=== PATIENT | female | born 1955 | race African-American/Black ===

== ENCOUNTER 2016-10-01 08:37 | Inpatient (IN) | payer MEDICAID ==
[~2016-10-01] VITALS: Ht 170.2 cm; Wt 117.9 kg
[2016-10-01] MEDS ORDERED: NORVASC5 MG ORAL (08:41)
[2016-10-01] MEDS ORDERED: ALBUTEROL SULF8.5 GM INH (08:41)
[2016-10-01] MEDS ORDERED: LISINOPRIL5 MG ORAL (08:41)
[2016-10-01] MEDS ORDERED: Ipratropium 0.02% Inh Soln 2.5ml UD HHN ONE (08:45)
[2016-10-01] MEDS ORDERED: Solu-MEDROL 125mg Inj IVP ONE (08:45)
[2016-10-01] MEDS ORDERED: Albuterol ud Inhalation HHN ONE ×2 (08:45→10:00)
[2016-10-01 08:48] VITALS: BP 142/56
--- NOTE | 2016-10-01 08:51 | Emergency Room Report ---
History of Present Illness General Chief Complaint: Dyspnea/Respdistress Source: Patient, EMS Present Illness HPI Patient presents with increased dyspnea. The patient has COPD. She's been using her nebulizer at home. She denies any fevers. She has a thick phlegm but without color. She has a slight chest pain. She also has pain in her knees and her ankles. Denies any nausea vomiting or diarrhea. She's recently hospitalized at [facility]. Paramedics found that her initial oxygen saturation is 90%. With Albuterol it went up to 97%. The patient is somewhat improved after there breathing treatment. This is not her worst attack. No dysuria, rashes, depression. She still smokes. Allergies: Coded Allergies: SULFA (SULFONAMIDE ANTIBIOTICS) (Verified Allergy, Unknown, 10/01/16) Patient History Past Medical History: see triage record, COPD, HIV Social History: Reports: smoking Social History Narrative at home Last Menstrual Period: na Now: No Reviewed Nursing Documentation: PMH: Agreed, PSxH: Agreed Nursing Documentation-PMH Hx Hypertension: Yes Hx COPD: Yes Review of Systems All Other Systems: negative except mentioned in HPI Physical Exam Vital Signs Date Time Temp Pulse Resp B/P Pulse Ox O2 Delivery O2 Flow Rate FiO2 10/01/16 08:30 98.1 101 24 134/80 100 Room Air 10/01/16 08:43 97 Sp02 EP Interpretation: reviewed, normal General Appearance: well appearing, no apparent distress, GCS 15 Head: normocephalic Eyes: bilateral eye PERRL, bilateral eye normal inspection ENT: moist mucus membranes Neck: supple Respiratory: wheezing, expiration, inspiration, other - minimal CWT Cardiovascular #1: regular rate, rhythm Cardiovascular #2: 2+ radial (R) Gastrointestinal: normal inspection, normal bowel sounds, non tender, no mass, non-distended, overweight Genitourinary: no CVA tenderness Musculoskeletal: back normal, gait/station normal, normal range of motion, no calf tenderness Neurologic: alert, oriented x3, grossly normal Psychiatric: mood/affect normal Skin: normal inspection, warm/dry Medical Decision Making Diagnostic Impression: Primary Impression: Asthma with acute exacerbation Qualified Codes: J45.41 - Moderate persistent asthma with (acute) exacerbation Additional Impression: Hypoxia ER Course Patient with dyspnea and hypoxia. Ddx: COPD, pneumonia, bronchitis, PE, pneumo , AMI amongst others. Emergent evaluation with CXR, EKG and labs. Treatment with solumedrol, albuterol. Not sound infected so will hold on antibiotics. Tobacco abuse. Improved with treatment, but needing another round of albuterol. C/O more pain and requesting analgesia, but then falls asleep easily. CXR and labs unremarkable. Laboratory Tests Test 10/01/16 08:55 White Blood Count 8.8 K/UL (4.8-10.8) Red Blood Count 5.37 M/UL (4.20-5.40) Hemoglobin 14.6 G/DL (12.0-16.0) Hematocrit 48.3 % (37.0-47.0) H Mean Corpuscular Volume 90 FL (80-99) Mean Corpuscular Hemoglobin 27.3 PG (27.0-31.0) Mean Corpuscular Hemoglobin Concent 30.3 G/DL (32.0-36.0) L Red Cell Distribution Width 15.5 % (11.6-14.8) H Platelet Count 188 K/UL (150-450) Mean Platelet Volume 7.6 FL (6.5-10.1) Neutrophils (%) (Auto) 69.4 % (45.0-75.0) Lymphocytes (%) (Auto) 18.7 % (20.0-45.0) L Monocytes (%) (Auto) 10.1 % (1.0-10.0) H Eosinophils (%) (Auto) 0.3 % (0.0-3.0) Basophils (%) (Auto) 1.6 % (0.0-2.0) Prothrombin Time 10.9 SEC (9.30-11.50) Prothrombin Time INR 1.1 (0.9-1.1) PTT 28 SEC (23-33) Sodium Level 139 mEQ/L (135-145) Potassium Level 4.4 mEQ/L (3.4-4.9) Chloride Level 95 mEQ/L (98-107) L Carbon Dioxide Level 30 mEQ/L (20-30) Anion Gap 14 (5-15) Blood Urea Nitrogen 15 mg/dL (7-23) Creatinine 0.9 mg/dL (0.5-0.9) Estimate Glomerular Filtration Rate > 60 mL/min (>60) Glucose Level 120 mg/dL (74-106) H Lactic Acid Level 1.50 mmol/L (0.66-2.22) Calcium Level 9.3 mg/dL (8.6-10.2) Total Bilirubin 0.8 mg/dL (0.0-1.2) Aspartate Amino Transferase (AST) 54 U/L (5-40) H Alanine Aminotransferase (ALT) 16 U/L (3-33) Alkaline Phosphatase 65 U/L (35-104) Total Creatine Kinase 510 U/L (26-140) H Troponin I < 0.30 ng/mL (<=0.30) Pro-B-Type Natriuretic Peptide 1395 pg/mL (0-125) H Total Protein 8.2 g/dL (6.6-8.7) Albumin 4.1 g/dL (3.5-5.2) Globulin 4.1 g/dL Albumin/Globulin Ratio 1.0 (1.0-2.7) EKG Diagnostic Results Rate: normal Rhythm: NSR ST Segments: no acute changes - LAE, LASH Rhythm Strip Diag. Results EP Interpretation: yes Rhythm: NSR, no PVC's, no ectopy Chest X-Ray Diagnostic Results EP Interpretation: Yes Findings: no consolidation, no effusion, no pneumothorax, no acute cardiopulmonary disease, other - large hilae Number of Views: 1 Last Vital Signs Date Time Temp Pulse Resp B/P Pulse Ox O2 Delivery O2 Flow Rate FiO2 10/01/16 08:48 97 22 142/56 97 Room Air 10/01/16 08:43 97 10/01/16 08:30 98.1 Status: improved Disposition: ADMITTED INPATIENT Condition: Serious Gerson Benitez M.D. October 01, 2016 08:51
[2016-10-01 09:16] LABS: BASOPHILS % (AUTO) 1.6 % (0.0-2.0); EOSINOPHILS % (AUTO) 0.3 % (0.0-3.0); LYMPHOCYTES % (AUTO) 18.7 % (20.0-45.0); MEAN CORPUSCULAR HEMOGLOBIN 27.3 PG (27.0-31.0); MEAN CORPUSCULAR HGB CONC 30.3 G/DL (32.0-36.0); MEAN CORPUSCULAR VOLUME 90 FL (80-99); MEAN PLATELET VOLUME 7.6 FL (6.5-10.1); MONOCYTES % (AUTO) 10.1 % (1.0-10.0); NEUTROPHILS % (AUTO) 69.4 % (45.0-75.0); PLATELET COUNT 188 K/UL (150-450); RED BLOOD COUNT 5.37 M/UL (4.20-5.40); RED CELL DISTRIBUTION WIDTH 15.5 % (11.6-14.8); WHITE BLOOD COUNT 8.8 K/UL (4.8-10.8)
[2016-10-01 09:23] LABS: INR 1.1 (0.9-1.1); PROTHROMBIN TIME 10.9 SEC (9.30-11.50)
[2016-10-01 09:28] LABS: TROPONIN I < 0.30 ng/mL (<=0.30)
[2016-10-01 09:29] LABS: ALANINE AMINOTRANSFERASE 16 U/L (3-33); ANION GAP 14 (5-15); ASPARTATE AMINO TRANSFERASE 54 U/L (5-40); CALCIUM 9.3 mg/dL (8.6-10.2); CARBON DIOXIDE 30 mEQ/L (20-30); CHLORIDE 95 mEQ/L (98-107); CREATININE 0.9 mg/dL (0.5-0.9); GLOMERULAR FILTRATION RATE > 60 mL/min (>60); HEMOLYSIS 56; POTASSIUM 4.4 mEQ/L (3.4-4.9); SODIUM 139 mEQ/L (135-145); TOTAL PROTEIN 8.2 g/dL (6.6-8.7)
[2016-10-01] MEDS ORDERED: HIV MEDICATION (09:51)
[2016-10-01] MEDS ORDERED: traMADol 50mg tab ORAL ONE (10:00)
[2016-10-01 10:18] VITALS: BP 164/73
--- NOTE | 2016-10-01 11:03 | Diagnostic Imaging Report ---
Indication: COPD Technique: One view of the chest Comparison: none Findings: The heart is mildly enlarged. Lungs and pleural spaces are clear. Impression: Cardiomegaly. No acute process
[2016-10-01] MEDS ORDERED: LORazepam Inj 2mg/ml 1ml IV PRN (11:45)
[2016-10-01] MEDS ORDERED: Morphine Sulfate 2mg/ml Inj IVP PRN (11:45)
[2016-10-01] MEDS ORDERED: Promethazine/Codeine 5ml UD ORAL PRN (11:45)
[2016-10-01] MEDS ORDERED: Ketorolac 30mg Inj IV PRN (11:45)
[2016-10-01] MEDS ORDERED: Nitroglycerin Subl 0.4mg tab (Bottle Of 25) SL PRN (11:45)
[2016-10-01] MEDS ORDERED: DuoNeb 0.5-3(2.5)mg/3ml neb HHN PRN (11:45)
[2016-10-01] MEDS: Lisinopril 20mg tab ORAL SCH (12:59)
[2016-10-01] MEDS: Solu-MEDROL 125mg Inj IV SCH ×2 (13:00→18:00)
[2016-10-01] MEDS ORDERED: Piperacillin/Tazobactam 2.25 GM in D5W 55 ML IV SCH (14:00)
[2016-10-01] MEDS: Zosyn 3.375gm q8h **Extended infusion IVPB SCH ×4 (14:29→21:41)
[2016-10-01 14:42] VITALS: BP 145/78
--- NOTE | 2016-10-01 15:55 | History and Physical ---
History of Present Illness General Date patient seen: October 01, 2016 Reason for Hospitalization: Dyspnea/Respdistress Present Illness HPI 61 year old female with hx of HTN, HIV, COPD presented to ER with CC of increased dyspnea. She has a thick phlegm but without color. Paramedics found that her initial oxygen saturation was 90%. The patient is somewhat improved after there breathing treatment. Allergies: Coded Allergies: SULFA (SULFONAMIDE ANTIBIOTICS) (Verified Allergy, Unknown, 10/01/16) Medication History Scheduled Albuterol Sulfate* (Albuterol Sulfate Mdi*), 2 PUFF INH Q4H, (Reported) Amlodipine Besylate (Norvasc), MG ORAL DAILY, (Reported) Lisinopril (Lisinopril*), 0 ORAL DAILY, (Reported) Miscellaneous Medications [HIV medication], (Reported) Patient History Healthcare decision maker Resuscitation status Full Code Advanced Directive on File Past Medical/Surgical History Past Medical/Surgical History: (1) COPD (chronic obstructive pulmonary disease) (2) HIV disease Review of Systems Respiratory: Reports: cough, wheezing All Other Systems: negative except mentioned in HPI Physical Exam Lines, tubes and drains: peripheral HEENT: normocephalic, atraumatic Respiratory/Chest: rhonchi - bilaterally, expiratory wheezing Cardiovascular/Chest: normal rate, regular rhythm Abdomen: normal bowel sounds, non tender Genitourinary/Rectal: normal genital exam Extremities: normal range of motion Last 24 Hour Vital Signs Date Time Temp Pulse Resp B/P Pulse Ox O2 Delivery O2 Flow Rate FiO2 10/01/16 14:42 97 145/78 10/01/16 12:59 160/74 10/01/16 11:50 98.1 101 17 164/73 92 Nasal Cannula 2.0 90 10/01/16 10:18 101 17 164/73 92 2.0 10/01/16 09:39 94 21 Nasal Cannula 90 10/01/16 08:48 97 22 142/56 97 Room Air 10/01/16 08:43 97 22 Room Air 97 10/01/16 08:30 98.1 101 24 134/80 100 Room Air Laboratory Tests Test 10/01/16 08:55 White Blood Count 8.8 K/UL (4.8-10.8) Red Blood Count 5.37 M/UL (4.20-5.40) Hemoglobin 14.6 G/DL (12.0-16.0) Hematocrit 48.3 % (37.0-47.0) H Mean Corpuscular Volume 90 FL (80-99) Mean Corpuscular Hemoglobin 27.3 PG (27.0-31.0) Mean Corpuscular Hemoglobin Concent 30.3 G/DL (32.0-36.0) L Red Cell Distribution Width 15.5 % (11.6-14.8) H Platelet Count 188 K/UL (150-450) Mean Platelet Volume 7.6 FL (6.5-10.1) Neutrophils (%) (Auto) 69.4 % (45.0-75.0) Lymphocytes (%) (Auto) 18.7 % (20.0-45.0) L Monocytes (%) (Auto) 10.1 % (1.0-10.0) H Eosinophils (%) (Auto) 0.3 % (0.0-3.0) Basophils (%) (Auto) 1.6 % (0.0-2.0) Prothrombin Time 10.9 SEC (9.30-11.50) Prothromb Time International Ratio 1.1 (0.9-1.1) Activated Partial Thromboplast Time 28 SEC (23-33) Sodium Level 139 mEQ/L (135-145) Potassium Level 4.4 mEQ/L (3.4-4.9) Chloride Level 95 mEQ/L (98-107) L Carbon Dioxide Level 30 mEQ/L (20-30) Anion Gap 14 (5-15) Blood Urea Nitrogen 15 mg/dL (7-23) Creatinine 0.9 mg/dL (0.5-0.9) Estimat Glomerular Filtration Rate > 60 mL/min (>60) Glucose Level 120 mg/dL (74-106) H Lactic Acid Level 1.50 mmol/L (0.66-2.22) Calcium Level 9.3 mg/dL (8.6-10.2) Total Bilirubin 0.8 mg/dL (0.0-1.2) Aspartate Amino Transf (AST/SGOT) 54 U/L (5-40) H Alanine Aminotransferase (ALT/SGPT) 16 U/L (3-33) Alkaline Phosphatase 65 U/L (35-104) Total Creatine Kinase 510 U/L (26-140) H Troponin I < 0.30 ng/mL (<=0.30) Pro-B-Type Natriuretic Peptide 1395 pg/mL (0-125) H Total Protein 8.2 g/dL (6.6-8.7) Albumin 4.1 g/dL (3.5-5.2) Globulin 4.1 g/dL Albumin/Globulin Ratio 1.0 (1.0-2.7) Height (Feet): 5 Height (Inches): 7.00 Weight (Pounds): 260 Medications Current Medications Medications (Trade) Dose Ordered Sig/Ary Route PRN Reason Start Time Stop Time Status Last Admin Dose Admin Albuterol/ Ipratropium (DuoNeb 0.5-3(2.5)mg/3ml) 3 ml Q4H PRN HHN dyspnea 10/01/16 11:45 10/06/16 11:44 Amlodipine Besylate (Norvasc) 10 mg DAILY ORAL 10/02/16 09:00 11/01/16 08:59 Dextrose STAT PRN IV Hypoglycemia 10/01/16 11:45 10/31/16 11:44 Heparin Sodium (Porcine) (Heparin 5000 units/ml) 5,000 units EVERY 12 HOURS SUBQ 10/01/16 21:00 10/31/16 20:59 Ketorolac Tromethamine (Toradol 30mg) 30 mg Q8H PRN IV Moderate Pain (Pain Scale 4-6) 10/01/16 11:45 10/06/16 11:44 Lisinopril (Prinivil) 20 mg DAILY ORAL 10/01/16 12:30 10/31/16 12:29 10/01/16 12:59 Lorazepam (Ativan 2mg/ml 1ml) 0.5 mg Q4H PRN IV For Anxiety 10/01/16 11:45 10/08/16 11:44 Methylprednisolone Sodium Succinate (Solu-MEDROL) 60 mg EVERY 6 HOURS IV 10/01/16 12:00 10/31/16 11:59 10/01/16 13:00 Morphine Sulfate (Morphine Sulfate) 2 mg Q4H PRN IVP Severe Pain (Pain Scale 7-10) 10/01/16 11:45 10/08/16 11:44 Nitroglycerin (Ntg) 0.4 mg Q5M X 3 DOSES PRN SL Prn Chest Pain 10/01/16 11:45 10/31/16 11:44 Ondansetron HCl (Zofran) 4 mg Q6H PRN IVP Nausea & Vomiting 10/01/16 11:45 10/31/16 11:44 Piperacillin Sod/ Tazobactam Sod/ Dextrose (Zosyn/D5W) 110 ml @ 27.5 mls/hr EVERY 8 HOURS IVPB 10/01/16 13:00 10/06/16 12:59 10/01/16 14:29 Promethazine HCl/ Codeine (Phenergan with Codeine) 5 ml Q6H PRN ORAL cough 10/01/16 11:45 10/31/16 11:44 Temazepam (Restoril) 15 mg HSPRN PRN ORAL Insomnia 10/01/16 21:00 10/08/16 20:59 Theophylline (Gustavo-Dur) 100 mg EVERY 12 HOURS ORAL 10/01/16 21:00 10/31/16 20:59 Assessment/Plan Problem List: (1) Asthma with acute exacerbation ICD Codes: J45.901 - Unspecified asthma with (acute) exacerbation SNOMED: 499715741 (2) COPD (chronic obstructive pulmonary disease) ICD Codes: J44.9 - Chronic obstructive pulmonary disease, unspecified SNOMED: 05366733 (3) HIV disease ICD Codes: B20 - Human immunodeficiency virus [HIV] disease SNOMED: 09564324 Assessment/Plan IV steroids IV antibiotics HIV consult check sputum chest PT titrate fio2 SERAFINNABIL ALCANTARAINGE October 01, 2016 15:55
[2016-10-01 15:59] VITALS: BP 152/91
--- NOTE | 2016-10-01 19:14 | Consultation ---
Consult Note Consult Note ID Dic # [id number] CARLITO MONTES M.D. October 01, 2016 19:14
[2016-10-01 19:47] VITALS: BP 141/72
[2016-10-01] MEDS: Theophylline ER 100mg ORAL SCH (21:41)
[2016-10-01] MEDS: Heparin 5000 units/ml inj SUBQ SCH (21:42)
--- NOTE | 2016-10-02 00:38 | Consultation ---
DATE OF CONSULTATION: CONSULTING PHYSICIAN: Adan Cardoso M.D. REFERRING PHYSICIAN: Carter Peter M.D. REASON FOR CONSULTATION: Evaluation of the patient for antibiotic management. HISTORY OF PRESENT ILLNESS: The patient is a 61-year-old female with multiple medical problems who has been admitted to this medical center due to the shortness of breath, dyspnea and sputum production. Infectious Disease consultation has been requested for further evaluation of the patient's antibiotic management. PAST MEDICAL HISTORY: 1. History of hypertension. 2. COPD. 3. History of schizophrenia. 4. HIV. MEDICATIONS: Heparin, Zosyn and Solu-Medrol. ALLERGIES: Sulfa. FAMILY HISTORY: Noncontributory. REVIEW OF SYSTEMS: The patient is an poor historian. PHYSICAL EXAMINATION: VITAL SIGNS: Temperature 99 degrees, blood pressure 159/91, pulse 83, and respiratory rate 18. HEENT: Mild pale conjunctivae. No icterus. NECK: No lymphadenopathy. CHEST: Coarse breathing sounds. HEART: S1 and S2. ABDOMEN: Soft and obese. EXTREMITIES: No cyanosis. LABORATORY AND DIAGNOSTIC DATA: White cell , hemoglobin 14 and platelets 188,000. BUN 15 and creatinine 0.9. AST 54, ALT and alkaline phosphatase unremarkable. Chest x-ray, cardiomegaly, no acute process. ASSESSMENT: The patient is a 61-year-old female, who came to the hospital with shortness of breath, cough, sputum production, bronchitis versus history of pneumonia (chest x-ray was unremarkable). The patient would benefit from oncology for also atypical . Chart reviewed. We will try to give further information regarding details of CD4 count and human immunodeficiency virus medications. PLAN: 1. We will continue the patient on . We will add Zithromax for atypical coverage. . 2. Monitor cultures (Blood and sputum). 3. Monitor the patient's chest x-ray. We patient's HIV medication. Based on the patient's current laboratories, we will do further recommendations. Thank you, Dr. Peter, for allowing me to participate in the care of this patient. I will follow the patient with you during this hospitalization. Adan Cardoso M.D. DR: MALIKA JOB#: [id number] CC:
[2016-10-02 00:47] VITALS: BP 145/70
[2016-10-02] MEDS: Solu-MEDROL 125mg Inj IV SCH ×4 (01:21→18:08)
[2016-10-02] MEDS ORDERED: Heparin 2000 units/Ns 1000ml INJ ONE (03:15)
[2016-10-02] MEDS ORDERED: Sodium Bicarbonate 8.4% 50ml Inj IV ONE (03:15)
[2016-10-02] MEDS ORDERED: Lidocaine 1% Plain 30 ml INJ ONE (03:15)
[2016-10-02] MEDS: Zosyn 3.375gm q8h **Extended infusion IVPB SCH ×6 (05:29→21:56)
[2016-10-02] MEDS ORDERED: Heparin 2000 units/Ns 1000ml INJ PRN (07:00)
[2016-10-02] MEDS ORDERED: Lidocaine 1% Plain 30 ml INJ PRN (07:00)
[2016-10-02 08:15] VITALS: BP 152/89
[2016-10-02] MEDS: Theophylline ER 100mg ORAL SCH ×2 (09:09→20:22)
[2016-10-02] MEDS: Lisinopril 20mg tab ORAL SCH (09:10)
[2016-10-02] MEDS: Heparin 5000 units/ml inj SUBQ SCH ×2 (09:11→20:27)
--- NOTE | 2016-10-02 09:37 | Infectious Diseases Prog Note ---
Assessment/Plan Assessment/Plan A: The patient is a 61-year-old female with Bronchitis vs pneumonia (chest x-ray was unremarkable) SOB, dyspnea and sputum production HTN COPD History of schizophrenia. HIV PLAN: continue the patient on Zosyn and Zithromax d# / ,upon DC will change to Levaquin 750 mg to complete the course pt may take his home HIV meds ( Clay RN ) Monitor CBC Monitor BMP Monitor cultures (Blood and sputum) Monitor the patient's chest x-ray Subjective Constitutional: Denies: anorexia, chills, drenching sweats, fatigue, fever, no symptoms, other Allergies: Coded Allergies: SULFA (SULFONAMIDE ANTIBIOTICS) (Verified Allergy, Unknown, 10/01/16) Objective Vital Signs Last 24 Hour Vital Signs Date Time Temp Pulse Resp B/P Pulse Ox O2 Delivery O2 Flow Rate FiO2 10/02/16 09:10 152/89 10/02/16 09:09 81 152/89 10/02/16 08:15 99.1 81 20 152/89 97 Nasal Cannula 2.0 81 10/02/16 00:47 98.8 100 20 145/70 92 Nasal Cannula 2.0 10/01/16 19:47 98.1 100 20 141/72 93 Nasal Cannula 2.0 10/01/16 15:59 99.0 98 20 152/91 94 Nasal Cannula 2.0 98 10/01/16 14:42 97 145/78 10/01/16 12:59 160/74 10/01/16 11:50 98.1 101 17 164/73 92 Nasal Cannula 2.0 90 10/01/16 10:38 105 21 97 Nasal Cannula 3.0 32 10/01/16 10:23 101 17 92 Nasal Cannula 3.0 32 10/01/16 10:23 32 10/01/16 10:18 101 17 164/73 92 2.0 10/01/16 09:39 94 21 Nasal Cannula 90 Height (Feet): 5 Height (Inches): 7.00 Weight (Pounds): 260 HEENT: atraumatic Respiratory/Chest: normal breath sounds Cardiovascular: regular rhythm Abdomen: non distended Current Medications Medications (Trade) Dose Ordered Sig/Ary Route PRN Reason Start Time Stop Time Status Last Admin Dose Admin Albuterol/ Ipratropium (DuoNeb 0.5-3(2.5)mg/3ml) 3 ml Q4H PRN HHN dyspnea 10/01/16 11:45 10/06/16 11:44 Amlodipine Besylate (Norvasc) 10 mg DAILY ORAL 10/02/16 09:00 11/01/16 08:59 10/02/16 09:09 Clonidine HCl (Catapres) 0.1 mg Q4H PRN ORAL SBP>160 10/01/16 16:30 10/31/16 16:29 Dextrose STAT PRN IV Hypoglycemia 10/01/16 11:45 10/31/16 11:44 Heparin Sodium (Porcine) (Heparin 5000 units/ml) 5,000 units EVERY 12 HOURS SUBQ 10/01/16 21:00 10/31/16 20:59 10/02/16 09:11 Heparin Sodium/ Sodium Chloride (Heparin 2000 units/Ns 1000ml premix) 2,000 unit ONCE PRN INJ PICC PLACEMENT 10/02/16 07:00 10/03/16 23:59 Ketorolac Tromethamine (Toradol 30mg) 30 mg Q8H PRN IV Moderate Pain (Pain Scale 4-6) 10/01/16 11:45 10/06/16 11:44 Lidocaine HCl (Xylocaine 1% 30ml) 30 ml ONCE PRN INJ PICC PLACEMENT 10/02/16 07:00 10/03/16 23:59 Lisinopril (Prinivil) 20 mg DAILY ORAL 10/01/16 12:30 10/31/16 12:29 10/02/16 09:10 Lorazepam (Ativan 2mg/ml 1ml) 0.5 mg Q4H PRN IV For Anxiety 10/01/16 11:45 10/08/16 11:44 Methylprednisolone Sodium Succinate (Solu-MEDROL) 60 mg EVERY 6 HOURS IV 10/01/16 12:00 10/31/16 11:59 10/02/16 05:28 Morphine Sulfate (Morphine Sulfate) 2 mg Q4H PRN IVP Severe Pain (Pain Scale 7-10) 10/01/16 11:45 10/08/16 11:44 Nitroglycerin (Ntg) 0.4 mg Q5M X 3 DOSES PRN SL Prn Chest Pain 10/01/16 11:45 10/31/16 11:44 Ondansetron HCl (Zofran) 4 mg Q6H PRN IVP Nausea & Vomiting 10/01/16 11:45 10/31/16 11:44 Piperacillin Sod/ Tazobactam Sod/ Dextrose (Zosyn/D5W) 110 ml @ 27.5 mls/hr EVERY 8 HOURS IVPB 10/01/16 13:00 10/06/16 12:59 10/02/16 05:29 Promethazine HCl/ Codeine (Phenergan with Codeine) 5 ml Q6H PRN ORAL cough 10/01/16 11:45 10/31/16 11:44 Temazepam (Restoril) 15 mg HSPRN PRN ORAL Insomnia 10/01/16 21:00 10/08/16 20:59 Theophylline (Gustavo-Dur) 100 mg EVERY 12 HOURS ORAL 10/01/16 21:00 10/31/16 20:59 10/02/16 09:09 CARLITO MONTES M.D. October 02, 2016 09:37
--- NOTE | 2016-10-02 11:25 | Diagnostic Imaging Report ---
Indications: Long-term central IV access required for intravenous therapy Technique: The procedure indications, risks, and alternatives were explained to the patient who understands and gives consent to proceed. Strict aseptic technique was utilized, including hand washing, use of hat and mask, use of sterile gown and gloves, sterile ultrasound gel and probe cover, prepping of right arm skin with 2% chlorhexidine solution, and application of full body sterile barrier over this area. Skin and subcutaneous soft tissues were infiltrated with 1% lidocaine and sodium bicarbonate. A small dermatotomy was made, through which the patent adequate size right basilic vein was punctured percutaneously under direct sonographic guidance with a 21-gauge needle. Exchange was made over a 0.018 inch guidewire for a 5 [place] peel-away sheath. A [employer] Power-PICC 5 [place] dual lumen central venous catheter was cut to appropriate length, then advanced through the sheath over the guidewire under direct fluoroscopic guidance into the superior vena cava. Guidewire and sheath were removed. Both catheter ports were aspirated, then flushed with heparinized saline. Final image was obtained. Catheter was secured the skin with adhesive dressing. Patient tolerated procedure well without immediate complications. Total fluoroscopy time: 0.3 minutes. Dose-area product: 19 dGy-cm2 Findings: Final image demonstrates tip of the central venous catheter at the level of superior vena cava-right atrial junction, 40 cm in from the skin. Both ports aspirate and flush freely. IMPRESSION: Placement of peripherally inserted central venous catheter via right basilic vein, working well.
[2016-10-02] MEDS: Azithromycin 500 MG in D5W 275 ML IV SCH (12:03)
[2016-10-02 12:13] VITALS: BP 143/69
[2016-10-02 15:41] VITALS: BP 158/60
--- NOTE | 2016-10-02 16:02 | Cardiology Report ---
APPROVED REPORT EKG Measurement Heart [id number] Normal sinus rhythm Possible Left atrial enlargement Right bundle branch block Left anterior fascicular block Cannot rule out Anterior infarct, age undetermined Abnormal ECG
--- NOTE | 2016-10-02 16:06 | Pulmonology Progress Note ---
Assessment/Plan Problems: (1) Asthma with acute exacerbation (2) COPD (chronic obstructive pulmonary disease) (3) HIV disease Assessment/Plan improving respiratory treatment iv steroids check sputum ID to follow Subjective ROS Limited/Unobtainable: No Interval Events: still coughing Constitutional: Reports: no symptoms HEENT: Repors: no symptoms Allergies: Coded Allergies: SULFA (SULFONAMIDE ANTIBIOTICS) (Verified Allergy, Unknown, 10/01/16) Objective Last 24 Hour Vital Signs Date Time Temp Pulse Resp B/P Pulse Ox O2 Delivery O2 Flow Rate FiO2 10/02/16 15:41 97.6 92 24 158/60 96 Nasal Cannula 2.0 92 10/02/16 12:13 98.1 88 23 143/69 99 Nasal Cannula 2.0 88 10/02/16 09:10 152/89 10/02/16 09:09 81 152/89 10/02/16 08:15 99.1 81 20 152/89 97 Nasal Cannula 2.0 81 10/02/16 00:47 98.8 100 20 145/70 92 Nasal Cannula 2.0 10/01/16 19:47 98.1 100 20 141/72 93 Nasal Cannula 2.0 Intake and Output 10/01/16 10/02/16 19:00 07:00 Intake Total 137.5 ml Balance 137.5 ml IV Total 137.5 ml # Voids 1 1 Objective Lines, tubes and drains: peripheral HEENT: normocephalic, atraumatic Respiratory/Chest: rhonchi - bilaterally, expiratory wheezing Cardiovascular/Chest: normal rate, regular rhythm Abdomen: normal bowel sounds, non tender Genitourinary/Rectal: normal genital exam Extremities: normal range of motion Current Medications Medications (Trade) Dose Ordered Sig/Ary Route PRN Reason Start Time Stop Time Status Last Admin Dose Admin Albuterol/ Ipratropium (DuoNeb 0.5-3(2.5)mg/3ml) 3 ml Q4H PRN HHN dyspnea 10/01/16 11:45 10/06/16 11:44 Amlodipine Besylate (Norvasc) 10 mg DAILY ORAL 10/02/16 09:00 11/01/16 08:59 10/02/16 09:09 Azithromycin/ Dextrose (Zithromax/D5W) 275 ml @ 275 mls/hr Q24HRS IV 10/02/16 11:00 10/08/16 11:59 10/02/16 12:03 Clonidine HCl (Catapres) 0.1 mg Q4H PRN ORAL SBP>160 10/01/16 16:30 10/31/16 16:29 Dextrose STAT PRN IV Hypoglycemia 10/01/16 11:45 10/31/16 11:44 Heparin Sodium (Porcine) (Heparin 5000 units/ml) 5,000 units EVERY 12 HOURS SUBQ 10/01/16 21:00 10/31/16 20:59 10/02/16 09:11 Heparin Sodium/ Sodium Chloride 2000 unit 2,000 unit ONCE PRN INJ PICC PLACEMENT 10/02/16 07:00 10/03/16 23:59 Ketorolac Tromethamine (Toradol 30mg) 30 mg Q8H PRN IV Moderate Pain (Pain Scale 4-6) 10/01/16 11:45 10/06/16 11:44 Lidocaine HCl (Xylocaine 1% 30ml) 30 ml ONCE PRN INJ PICC PLACEMENT 10/02/16 07:00 10/03/16 23:59 Lisinopril (Prinivil) 20 mg DAILY ORAL 10/01/16 12:30 10/31/16 12:29 10/02/16 09:10 Lorazepam (Ativan 2mg/ml 1ml) 0.5 mg Q4H PRN IV For Anxiety 10/01/16 11:45 10/08/16 11:44 Methylprednisolone Sodium Succinate (Solu-MEDROL) 60 mg EVERY 6 HOURS IV 10/01/16 12:00 10/31/16 11:59 10/02/16 12:02 Morphine Sulfate (Morphine Sulfate) 2 mg Q4H PRN IVP Severe Pain (Pain Scale 7-10) 10/01/16 11:45 10/08/16 11:44 Nitroglycerin (Ntg) 0.4 mg Q5M X 3 DOSES PRN SL Prn Chest Pain 10/01/16 11:45 10/31/16 11:44 Ondansetron HCl (Zofran) 4 mg Q6H PRN IVP Nausea & Vomiting 10/01/16 11:45 10/31/16 11:44 Piperacillin Sod/ Tazobactam Sod/ Dextrose (Zosyn/D5W) 110 ml @ 27.5 mls/hr EVERY 8 HOURS IVPB 5/3/17 13:00 10/06/16 12:59 10/02/16 13:47 Promethazine HCl/ Codeine (Phenergan with Codeine) 5 ml Q6H PRN ORAL cough 10/01/16 11:45 10/31/16 11:44 Temazepam (Restoril) 15 mg HSPRN PRN ORAL Insomnia 10/01/16 21:00 10/08/16 20:59 Theophylline (Gustavo-Dur) 100 mg EVERY 12 HOURS ORAL 10/01/16 21:00 10/31/16 20:59 10/02/16 09:09 DEREK MARTIN October 02, 2016 16:06
[2016-10-02 21:00] VITALS: BP 170/82
[2016-10-03] VITALS: BP 160/100
[2016-10-03] MEDS: Solu-MEDROL 125mg Inj IV SCH ×4 (00:31→18:37)
[2016-10-03] MEDS: Zosyn 3.375gm q8h **Extended infusion IVPB SCH ×6 (05:58→22:43)
[2016-10-03 08:31] VITALS: BP 118/59
[2016-10-03] MEDS ORDERED: Heparin 2000 units/Ns 1000ml INJ ONE (10:00)
[2016-10-03] MEDS ORDERED: Lidocaine 1% Plain 30 ml INJ ONE (10:00)
[2016-10-03] MEDS: Lisinopril 20mg tab ORAL SCH (10:06)
[2016-10-03] MEDS: Theophylline ER 100mg ORAL SCH ×2 (10:07→21:40)
[2016-10-03] MEDS: Heparin 5000 units/ml inj SUBQ SCH ×2 (10:08→21:41)
[2016-10-03] MEDS ORDERED: Sodium Bicarbonate 8.4% 50ml Inj IV ONE (10:15)
[2016-10-03 11:42] VITALS: BP 159/93
[2016-10-03 13:15] LABS: APPEARANCE,URINE CLEAR; KETONES,URINE NEGATIVE (NEGATIVE); LEUKOCYTE ESTERASE ,URINE 2+ (NEGATIVE); NITRITE,URINE NEGATIVE (NEGATIVE); PH,URINE 7 (4.5-8.0); PROTEIN,URINE 3+ (NEGATIVE); UROBILINOGEN,URINE 8 MG/DL (0.0-1.0)
[2016-10-03 13:27] LABS: BACTERIA,URINE FEW /HPF; SQUAMOUS EPITHELIAL CELL,UR FEW /LPF (NONE/OCC)
--- NOTE | 2016-10-03 14:41 | Diagnostic Imaging Report ---
Indication: oil heaterman venous access Findings: After the indications, procedure, risks, complications, and alternatives of the procedure were explained, written informed consent was obtained. The left upper extremity was prepped with alcohol. All elements of maximal sterile barrier technique were followed including usage of a cap, mask, sterile gown, sterile gloves, hand hygiene and a large sterile sheet. Sonographic evaluation of the upper extremity was performed demonstrating a patent and compressible basilic vein. Access was obtained under real-time ultrasound guidance and digital image was saved and archived. An .018 wire was introduced. Needle exchanged for a 5 [place] peel-away sheath. Measurements were obtained. A 5 [place] dual-lumen Power PICC line catheter was cut to 40 cm and introduced over the wire. Peel-away sheath and wire were removed.Catheter was secured to the skin using 2-0 Prolene suture. Both ports aspirate and flush easily. Fluoroscopic Images show distal tip in the superior vena cava. Total fluoroscopic time 0.1 minute Impression: Successful placement of an upper extremity PICC line catheter
[2016-10-03] MEDS: Azithromycin 500 MG in D5W 275 ML IV SCH (16:11)
[2016-10-03] MEDS ORDERED: NS 275ml ONE (16:15)
[2016-10-03] MEDS ORDERED: Tubing IV Secondary IV ONE (16:15)
[2016-10-03 16:19] VITALS: BP 153/95
--- NOTE | 2016-10-03 18:43 | Infectious Diseases Prog Note ---
Assessment/Plan Assessment/Plan A: The patient is a 61-year-old female with Bronchitis vs pneumonia (chest x-ray was unremarkable) SOB, dyspnea and sputum production HIV HTN COPD History of schizophrenia. PLAN: continue the patient on Zosyn and Zithromax d# 2 / 5 ,upon DC will change to Levaquin 750 mg to complete the course pt may take his home HIV meds ( Clay RN ) Monitor CBC Monitor BMP Monitor cultures (Blood and sputum) Monitor the patient's chest x-ray Subjective Constitutional: Denies: anorexia, chills, drenching sweats, fatigue, fever, no symptoms, other Allergies: Coded Allergies: SULFA (SULFONAMIDE ANTIBIOTICS) (Verified Allergy, Unknown, 10/01/16) Objective Vital Signs Last 24 Hour Vital Signs Date Time Temp Pulse Resp B/P Pulse Ox O2 Delivery O2 Flow Rate FiO2 10/03/16 16:19 98.2 83 15 153/95 94 Mechanical Ventilator 10/03/16 12:26 88 18 98 Nasal Cannula 3.0 32 10/03/16 12:15 85 17 95 Nasal Cannula 3.0 32 10/03/16 12:15 32 10/03/16 11:42 98.1 82 16 159/93 95 Room Air 10/03/16 10:24 96 Nasal Cannula 3.0 32 10/03/16 10:24 90 18 Nasal Cannula 3.0 32 10/03/16 10:24 Nasal Cannula 3.0 32 10/03/16 10:07 86 118/59 10/03/16 10:06 118/59 10/03/16 08:31 97.9 86 14 118/59 97 Nasal Cannula 10/03/16 00:50 160/100 10/03/16 00:00 97.5 84 20 160/100 97 Nasal Cannula 2.0 10/02/16 21:00 97.5 89 20 170/82 93 Room Air 10/02/16 20:22 170/82 10/02/16 19:38 93 18 Nasal Cannula 3.0 32 10/02/16 19:38 97 Nasal Cannula 3.0 32 10/02/16 19:38 Nasal Cannula 3.0 32 Height (Feet): 5 Height (Inches): 7.00 Weight (Pounds): 260 HEENT: atraumatic Respiratory/Chest: normal breath sounds Cardiovascular: regular rhythm Abdomen: no organomegaly Laboratory Tests Test 10/03/16 12:15 Urine Color Yellow Urine Appearance Clear Urine pH 7 (4.5-8.0) Urine Specific [place] 1.010 (1.005-1.035) Urine Protein 3+ (NEGATIVE) H Urine Glucose (UA) Negative (NEGATIVE) Urine Ketones Negative (NEGATIVE) Urine Occult Blood 2+ (NEGATIVE) H Urine Nitrite Negative (NEGATIVE) Urine Bilirubin Negative (NEGATIVE) Urine Urobilinogen 8 MG/DL (0.0-1.0) H Urine Leukocyte Esterase 2+ (NEGATIVE) H Urine RBC 2-4 /HPF (0 - 2) H Urine WBC 5-10 /HPF (0 - 2) H Urine Squamous Epithelial Cells Few /LPF (NONE/OCC) Urine Bacteria Few /HPF (NONE) Current Medications Medications (Trade) Dose Ordered Sig/Ary Route PRN Reason Start Time Stop Time Status Last Admin Dose Admin Albuterol/ Ipratropium (DuoNeb 0.5-3(2.5)mg/3ml) 3 ml Q4H PRN HHN dyspnea 10/01/16 11:45 10/06/16 11:44 10/03/16 12:18 Amlodipine Besylate (Norvasc) 10 mg DAILY ORAL 10/02/16 09:00 11/01/16 08:59 10/03/16 10:07 Azithromycin (Zithromax) 500 mg DAILY ORAL 10/04/16 09:00 10/07/16 08:59 Clonidine HCl (Catapres) 0.1 mg Q4H PRN ORAL SBP>160 10/01/16 16:30 10/31/16 16:29 10/03/16 00:50 Dextrose STAT PRN IV Hypoglycemia 10/01/16 11:45 10/31/16 11:44 Heparin Sodium (Porcine) (Heparin 5000 units/ml) 5,000 units EVERY 12 HOURS SUBQ 10/01/16 21:00 10/31/16 20:59 10/03/16 10:08 Heparin Sodium/ Sodium Chloride (Heparin 2000 units/Ns 1000ml premix) 2,000 unit ONCE PRN INJ PICC PLACEMENT 10/02/16 07:00 10/03/16 23:59 Ketorolac Tromethamine (Toradol 30mg) 30 mg Q8H PRN IV Moderate Pain (Pain Scale 4-6) 10/01/16 11:45 10/06/16 11:44 Lidocaine HCl (Xylocaine 1% 30ml) 30 ml ONCE PRN INJ PICC PLACEMENT 10/02/16 07:00 10/03/16 23:59 Lisinopril (Prinivil) 20 mg DAILY ORAL 10/01/16 12:30 10/31/16 12:29 10/03/16 10:06 Lorazepam (Ativan 2mg/ml 1ml) 0.5 mg Q4H PRN IV For Anxiety 10/01/16 11:45 10/08/16 11:44 Methylprednisolone Sodium Succinate (Solu-MEDROL) 60 mg EVERY 6 HOURS IV 10/01/16 12:00 10/31/16 11:59 10/03/16 18:37 Morphine Sulfate (Morphine Sulfate) 2 mg Q4H PRN IVP Severe Pain (Pain Scale 7-10) 10/01/16 11:45 10/08/16 11:44 Nitroglycerin (Ntg) 0.4 mg Q5M X 3 DOSES PRN SL Prn Chest Pain 10/01/16 11:45 10/31/16 11:44 Ondansetron HCl (Zofran) 4 mg Q6H PRN IVP Nausea & Vomiting 10/01/16 11:45 10/31/16 11:44 Piperacillin Sod/ Tazobactam Sod/ Dextrose (Zosyn/D5W) 110 ml @ 27.5 mls/hr EVERY 8 HOURS IVPB 10/01/16 13:00 10/06/16 12:59 10/03/16 17:43 Promethazine HCl/ Codeine (Phenergan with Codeine) 5 ml Q6H PRN ORAL cough 10/01/16 11:45 10/31/16 11:44 Temazepam (Restoril) 15 mg HSPRN PRN ORAL Insomnia 10/01/16 21:00 10/08/16 20:59 Theophylline (Gustavo-Dur) 100 mg EVERY 12 HOURS ORAL 10/01/16 21:00 10/31/16 20:59 10/03/16 10:07 CARLITO MONTES M.D. October 03, 2016 18:43
[2016-10-03 20:00] VITALS: BP 161/88
[2016-10-03 20:30] VITALS: BP 148/76
--- NOTE | 2016-10-03 22:01 | Pulmonology Progress Note ---
Assessment/Plan Problems: (1) Asthma with acute exacerbation (2) COPD (chronic obstructive pulmonary disease) (3) HIV disease Assessment/Plan improving respiratory treatment iv steroids check sputum ID to follow taper steroids Subjective ROS Limited/Unobtainable: No Constitutional: Reports: no symptoms HEENT: Repors: no symptoms Allergies: Coded Allergies: SULFA (SULFONAMIDE ANTIBIOTICS) (Verified Allergy, Unknown, 10/01/16) Objective Last 24 Hour Vital Signs Date Time Temp Pulse Resp B/P Pulse Ox O2 Delivery O2 Flow Rate FiO2 10/03/16 20:36 Nasal Cannula 2.0 10/03/16 20:00 97.2 69 20 161/88 93 Room Air 10/03/16 19:45 96 Venturi Mask 4.0 30 10/03/16 19:45 Venturi Mask 4.0 30 10/03/16 19:44 76 18 Venturi Mask 4.0 30 10/03/16 16:19 98.2 83 15 153/95 94 Mechanical Ventilator 10/03/16 12:26 88 18 98 Nasal Cannula 3.0 32 10/03/16 12:15 85 17 95 Nasal Cannula 3.0 32 10/03/16 12:15 32 10/03/16 11:42 98.1 82 16 159/93 95 Room Air 10/03/16 10:24 96 Nasal Cannula 3.0 32 10/03/16 10:24 90 18 Nasal Cannula 3.0 32 10/03/16 10:24 Nasal Cannula 3.0 32 10/03/16 10:07 86 118/59 10/03/16 10:06 118/59 10/03/16 08:31 97.9 86 14 118/59 97 Nasal Cannula 10/03/16 00:50 160/100 10/03/16 00:00 97.5 84 20 160/100 97 Nasal Cannula 2.0 Intake and Output 10/02/16 10/03/16 19:00 07:00 Intake Total 720 ml 110.0 ml Balance 720 ml 110.0 ml Intake Oral 720 ml IV Total 110.0 ml # Voids 2 # Bowel Movements 2 Objective Lines, tubes and drains: peripheral HEENT: normocephalic, atraumatic Respiratory/Chest: rhonchi - bilaterally, expiratory wheezing Cardiovascular/Chest: normal rate, regular rhythm Abdomen: normal bowel sounds, non tender Genitourinary/Rectal: normal genital exam Extremities: normal range of motion Laboratory Tests 10/03/16 12:15: Urine Color Yellow, Urine Appearance Clear, Urine pH 7, Urine Specific [place] 1.010, Urine Protein 3+H, Urine Glucose (UA) Negative, Urine Ketones Negative, Urine Occult Blood 2+H, Urine Nitrite Negative, Urine Bilirubin Negative, Urine Urobilinogen 8H, Urine Leukocyte Esterase 2+H, Urine RBC 2-4H, Urine WBC 5-10H, Urine Squamous Epithelial Cells Few, Urine Bacteria Few Current Medications Medications (Trade) Dose Ordered Sig/Ary Route PRN Reason Start Time Stop Time Status Last Admin Dose Admin Albuterol/ Ipratropium (DuoNeb 0.5-3(2.5)mg/3ml) 3 ml Q4H PRN HHN dyspnea 10/01/16 11:45 10/06/16 11:44 10/03/16 12:18 Amlodipine Besylate (Norvasc) 10 mg DAILY ORAL 10/02/16 09:00 11/01/16 08:59 10/03/16 10:07 Azithromycin (Zithromax) 500 mg DAILY ORAL 10/04/16 09:00 10/07/16 08:59 Clonidine HCl (Catapres) 0.1 mg Q4H PRN ORAL SBP>160 10/01/16 16:30 10/31/16 16:29 10/03/16 00:50 Dextrose STAT PRN IV Hypoglycemia 10/01/16 11:45 10/31/16 11:44 Heparin Sodium (Porcine) (Heparin 5000 units/ml) 5,000 units EVERY 12 HOURS SUBQ 10/01/16 21:00 10/31/16 20:59 10/03/16 21:41 Heparin Sodium/ Sodium Chloride (Heparin 2000 units/Ns 1000ml premix) 2,000 unit ONCE PRN INJ PICC PLACEMENT 10/02/16 07:00 10/03/16 23:59 Ketorolac Tromethamine (Toradol 30mg) 30 mg Q8H PRN IV Moderate Pain (Pain Scale 4-6) 10/01/16 11:45 10/06/16 11:44 Lidocaine HCl (Xylocaine 1% 30ml) 30 ml ONCE PRN INJ PICC PLACEMENT 10/02/16 07:00 10/03/16 23:59 Lisinopril (Prinivil) 20 mg DAILY ORAL 10/01/16 12:30 10/31/16 12:29 10/03/16 10:06 Lorazepam (Ativan 2mg/ml 1ml) 0.5 mg Q4H PRN IV For Anxiety 10/01/16 11:45 10/08/16 11:44 Methylprednisolone Sodium Succinate (Solu-MEDROL) 60 mg EVERY 6 HOURS IV 10/01/16 12:00 10/31/16 11:59 10/03/16 18:37 Morphine Sulfate (Morphine Sulfate) 2 mg Q4H PRN IVP Severe Pain (Pain Scale 7-10) 10/01/16 11:45 10/08/16 11:44 Nicotine (Nicoderm) 1 patch Q24H TDERMAL 10/03/16 20:00 11/02/16 19:59 10/03/16 21:40 Nitroglycerin (Ntg) 0.4 mg Q5M X 3 DOSES PRN SL Prn Chest Pain 10/01/16 11:45 10/31/16 11:44 Ondansetron HCl (Zofran) 4 mg Q6H PRN IVP Nausea & Vomiting 10/01/16 11:45 10/31/16 11:44 Piperacillin Sod/ Tazobactam Sod/ Dextrose (Zosyn/D5W) 110 ml @ 27.5 mls/hr EVERY 8 HOURS IVPB 10/01/16 13:00 10/06/16 12:59 10/03/16 17:43 Promethazine HCl/ Codeine (Phenergan with Codeine) 5 ml Q6H PRN ORAL cough 10/01/16 11:45 10/31/16 11:44 Temazepam (Restoril) 15 mg HSPRN PRN ORAL Insomnia 10/01/16 21:00 10/08/16 20:59 Theophylline (Gustavo-Dur) 100 mg EVERY 12 HOURS ORAL 10/01/16 21:00 10/31/16 20:59 10/03/16 21:40 DEREK MARTIN October 03, 2016 22:01
[2016-10-04 04:00] VITALS: BP 159/79
[2016-10-04] MEDS: Zosyn 3.375gm q8h **Extended infusion IVPB SCH ×2 (05:16)
[2016-10-04 08:19] VITALS: BP 152/94
[2016-10-04] MEDS: Theophylline ER 100mg ORAL SCH (08:20)
[2016-10-04] MEDS: Lisinopril 20mg tab ORAL SCH (08:20)
[2016-10-04] MEDS: Heparin 5000 units/ml inj SUBQ SCH (08:22)
[2016-10-04] MEDS ORDERED: Solu-MEDROL 125mg Inj IV SCH (09:00)
[2016-10-04] MEDS ORDERED: Azithromycin 250mg tab ORAL SCH (09:00)
[2016-10-04 11:40] VITALS: BP 143/70
--- NOTE | 2016-10-04 22:07 | Pulmonology Progress Note ---
Assessment/Plan Problems: (1) Asthma with acute exacerbation (2) COPD (chronic obstructive pulmonary disease) (3) HIV disease Assessment/Plan improving respiratory treatment iv steroids check sputum ID to follow taper steroids Subjective Allergies: Coded Allergies: SULFA (SULFONAMIDE ANTIBIOTICS) (Verified Allergy, Unknown, 10/01/16) Objective Last 24 Hour Vital Signs Date Time Temp Pulse Resp B/P Pulse Ox O2 Delivery O2 Flow Rate FiO2 10/04/16 11:40 97.6 74 20 143/70 95 Nasal Cannula 2.0 10/04/16 08:28 73 159/79 10/04/16 08:20 159/79 10/04/16 08:19 97.9 73 20 152/94 96 Nasal Cannula 2.0 10/04/16 07:50 74 18 Nasal Cannula 2.0 28 10/04/16 07:50 Nasal Cannula 2.0 28 10/04/16 07:50 96 Nasal Cannula 2.0 28 10/04/16 04:00 97.7 89 20 159/79 Nasal Cannula Intake and Output 10/03/16 10/04/16 19:00 07:00 Intake Total 2185.0 ml Output Total 400 ml Balance 1785.0 ml Intake Oral 1800 ml IV Total 385.0 ml Output Urine Total 400 ml # Voids 3 # Bowel Movements 3 Objective Lines, tubes and drains: peripheral HEENT: normocephalic, atraumatic Respiratory/Chest: rhonchi - bilaterally, expiratory wheezing Cardiovascular/Chest: normal rate, regular rhythm Abdomen: normal bowel sounds, non tender Genitourinary/Rectal: normal genital exam Extremities: normal range of motion DEREK MARTIN October 04, 2016 22:07
[2016-10-06] MEDS ORDERED: LEVAQUIN750 MG ORAL (12:15)
[2016-10-06] MEDS ORDERED: MEDROL4 MG ORAL (12:15)
--- NOTE | 2016-10-06 12:20 | Discharge Summary ---
Discharge Summary Hospital Course Date of Admission October 01, 2016 at 09:17 Date of Discharge October 04, 2016 at 15:05 Admitting Diagnosis COPD exacerbation HPI Nona Joseph is a 61 year old female who was admitted on October 01, 2016 at 09:17 for Chronic Obstructive Pulmonary Disease Exacerbation Hospital Course dc summary #[id number] Discharge Condition Upon Discharge: stable Discharge Disposition Patient was discharged to Home (01) Discharge Diagnoses: Discharge Instructions Discharge Instructions Special Instructions I have been assigned to complete a D/C Summary on this account. I was not involved in the patient management Lydia Woods NP ([place]) October 06, 2016 12:20
--- NOTE | 2016-10-07 04:59 | Discharge Summary 2 SIG ---
DATE OF ADMISSION: 10/01/2016 DATE OF DISCHARGE: 10/04/2016 REASON FOR ADMISSION: 61-year-old female with a history of COPD, HIV, and hypertension, presented to emergency room with a chief complaint of increased dyspnea. The patient had a thick colorless phlegm. Initial oxygen saturation according to paramedics was 90%. The patient somewhat improved after breathing treatment, but still reported chest tightness and dyspnea. In the emergency room, the patient was afebrile. Laboratories tests were unremarkable. Chest x-ray revealed no acute cardiopulmonary disease. The patient was admitted for further management. ADMITTING DIAGNOSES: 1. Acute asthma exacerbation. 2. Chronic obstructive pulmonary disease. 3. Hypoxemia. 4. Hypertension. 5. Human immunodeficiency virus status. HOSPITAL COURSE: The patient was admitted. The patient was started on IV steroids, which were tapered. Supplemental oxygen and pulmonary toilet such as nebulizing treatment and chest physiotherapy therapy provided. The patient was started on empiric antibiotics. Unable to collect sputum cultures as the cough was dry. Per ID recommendation, upon discharge, continue three more days of Levaquin 750 mg daily . Chest x-ray revealed cardiomegaly, but no acute cardiopulmonary process. Supplemental oxygen was titrated to keep saturation above 92%. Prior to discharge, pulse oximetry was stable on the room air. Antitussive was provided as needed. The patient was on theophylline. Nicotine patch was initiated while in the hospital. The patient was counseled on smoking cessation. DVT prophylaxis was provided. ID doctor recommended to resume home HIV medications. Blood pressure was managed with the current regimen of calcium channel vj and SASKIA inhibitor, and was stable. The patient was stable for discharge. DISCHARGE DIAGNOSES: 1. Acute asthma exacerbation. 2. Hypoxemia. 3. Bronchitis. 4. Hypertension. 5. Human immunodeficiency virus status. 6. Chronic obstructive pulmonary disease. DISCHARGE MEDICATIONS: See medication reconciliation list. The patient was discharged on oral antibiotics and Medrol Dosepak. The patient had at home albuterol to use as needed. DISCHARGE INSTRUCTIONS: The patient was discharged home. Follow up with the primary medical doctor. Carter Peter M.D. I have been assigned to dictate discharge summary on this account and I was not involved in the patient's management. Lydia JeanMarita santos DR: MARY JOB#: [id number] CC: LUIS MIGUEL
== END 2016-10-04 15:05 | disposition home or self-care (01) | DRG 141 ==
LOC: EDBD 08:37 → EMR 09:00 → 4E 09:17 → EDBEDREQ 10:58
PROC: 02HV33Z Insertion of Infusion Device into Superior Vena Cava, Percutaneous Approach (ICD-10-PCS; principal; 2016-10-02)
PROC: 02HV33Z Insertion of Infusion Device into Superior Vena Cava, Percutaneous Approach (ICD-10-PCS; 2016-10-03)
DX: J45.901 Unspecified asthma with (acute) exacerbation (principal); B20 Human immunodeficiency virus [HIV] disease; F20.9 Schizophrenia, unspecified; Z88.2 Allergy status to sulfonamides; R09.02 Hypoxemia; J40 Bronchitis, not specified as acute or chronic; I10 Essential (primary) hypertension; J44.9 Chronic obstructive pulmonary disease, unspecified
CPT/HCPCS: 36415; 36569; 71010; 76937; 80053; 81003; 82550; 82962; 83605; 83880; 84484; 85025; 85610; 85730; 93005; 94640; 94664; 94760; J7620

== ENCOUNTER 2016-11-25 16:48 | Inpatient (IN) | payer MEDICAID ==
[~2016-11-25] VITALS: Ht 167.6 cm; Wt 120.2 kg
[~2016-11-25 16:48] MED LIST: ALBUTEROL SULF8.5 GM INH; HIV MEDICATION; LEVAQUIN750 MG ORAL; LISINOPRIL5 MG ORAL; MEDROL4 MG ORAL; NORVASC5 MG ORAL
[2016-11-25] MEDS: Ipratropium 0.02% Inh Soln 2.5ml UD HHN SCH ×3 (17:14→19:17)
[2016-11-25] MEDS: Albuterol ud Inhalation HHN SCH ×3 (17:14→19:17)
[2016-11-25] MEDS ORDERED: Solu-MEDROL 125mg Inj IVP ONE (17:15)
[2016-11-25 18:03] LABS: BASOPHILS % (AUTO) 2.7 % (0.0-2.0); LYMPHOCYTES % (AUTO) 21.4 % (20.0-45.0); MEAN CORPUSCULAR HEMOGLOBIN 29.9 PG (27.0-31.0); MEAN CORPUSCULAR HGB CONC 32.5 G/DL (32.0-36.0); MEAN CORPUSCULAR VOLUME 92 FL (80-99); NEUTROPHILS % (AUTO) 62.9 % (45.0-75.0); PLATELET COUNT 154 K/UL (150-450); RED CELL DISTRIBUTION WIDTH 14.3 % (11.6-14.8); WHITE BLOOD COUNT 8.1 K/UL (4.8-10.8)
[2016-11-25 18:11] LABS: TROPONIN I < 0.30 ng/mL (<=0.30)
[2016-11-25 18:15] LABS: APPEARANCE,URINE CLEAR; KETONES,URINE NEGATIVE (NEGATIVE); LEUKOCYTE ESTERASE ,URINE 2+ (NEGATIVE); NITRITE,URINE NEGATIVE (NEGATIVE); PH,URINE 6 (4.5-8.0); PROTEIN,URINE NEGATIVE (NEGATIVE); UROBILINOGEN,URINE NORMAL MG/DL (0.0-1.0)
[2016-11-25 18:16] LABS: ALANINE AMINOTRANSFERASE 8 U/L (3-33); ALBUMIN/GLOBULIN RATIO 1.2 (1.0-2.7); ANION GAP 12 (5-15); ASPARTATE AMINO TRANSFERASE 18 U/L (5-40); CALCIUM 9.2 mg/dL (8.6-10.2); CARBON DIOXIDE 30 mEQ/L (20-30); CHLORIDE 99 mEQ/L (98-107); CREATININE 0.9 mg/dL (0.5-0.9); GLOMERULAR FILTRATION RATE > 60 mL/min (>60); HEMOLYSIS 6; POTASSIUM 3.4 mEQ/L (3.4-4.9); SODIUM 141 mEQ/L (135-145); TOTAL PROTEIN 7.3 g/dL (6.6-8.7)
[2016-11-25 18:17] LABS: AMORPHOUS SEDIMENT,UR FEW /LPF; BACTERIA,URINE FEW /HPF; RBC,URINE 0-2 /HPF (0 - 2); SQUAMOUS EPITHELIAL CELL,UR FEW /LPF (NONE/OCC)
[2016-11-25 18:28] LABS: CKMB 3.9 ng/mL (< 3.8)
[2016-11-25 18:31] VITALS: BP 106/72
[2016-11-25] MEDS ORDERED: Promethazine/Codeine 5ml UD ORAL PRN (18:45)
[2016-11-25] MEDS ORDERED: Ketorolac 30mg Inj IV PRN (18:45)
[2016-11-25] MEDS ORDERED: LORazepam Inj 2mg/ml 1ml IV PRN (18:45)
[2016-11-25] MEDS ORDERED: Nitroglycerin Subl 0.4mg tab (Bottle Of 25) SL PRN (18:45)
[2016-11-25] MEDS ORDERED: ODEFSEY TABLET1 EACH PO (18:48)
[2016-11-25] MEDS ORDERED: IBUPROFEN600 MG ORAL (18:48)
[2016-11-25] MEDS ORDERED: RISPERIDONE PO (18:48)
[2016-11-25] MEDS ORDERED: TRAMADOL HCL50 MG ORAL (18:52)
[2016-11-25] MEDS ORDERED: MULTIVITAMINS1 EAC2 ORAL (18:52)
[2016-11-25] MEDS ORDERED: GABAPENTIN400 MG ORAL (18:52)
[2016-11-25] MEDS ORDERED: VITAMIN B COMP1 EAC5 PO (18:52)
--- NOTE | 2016-11-25 19:11 | Emergency Room Report ---
History of Present Illness General Chief Complaint: Upper Respiratory Illness Source: EMS Present Illness HPI 61-year-old female presents ED complaining of shortness of breath. States that she went to her doctor's office today to get a breathing treatment. Has history of COPD. Patient left the office was feeling short of breath. Call 911. Patient is normally on home oxygen but does not have portable oxygen. Patient notes cough with productive phlegm. Notes shortness of breath when walking. Denies any chest pain. Denies any fevers or chills. States she was recently admitted and discharged from another hospital or treatment of her COPD. No other aggravating or relieving factors. Denies any other associated symptoms Allergies: Coded Allergies: SULFA (SULFONAMIDE ANTIBIOTICS) (Verified Allergy, Unknown, 10/01/16) Patient History Past Medical History: HTN, asthma, COPD Past Surgical History: none Pertinent Family History: none Social History: Denies: alcohol use, drug use, smoking Now: No Immunizations: UTD Reviewed Nursing Documentation: PMH: Agreed, PSxH: Agreed Nursing Documentation-PMH Past Medical History: No History, Except For Hx Cardiac Problems: No - HIV Hx Hypertension: Yes Hx Asthma: Yes Hx COPD: Yes Hx Cancer: No Hx Gastrointestinal Problems: No Hx Neurological Problems: No Review of Systems All Other Systems: negative except mentioned in HPI Physical Exam Vital Signs Date Time Temp Pulse Resp B/P Pulse Ox O2 Delivery O2 Flow Rate FiO2 11/25/16 16:39 98.2 90 16 168/88 94 Room Air 11/25/16 16:49 2.0 Sp02 EP Interpretation: reviewed, normal General Appearance: mild distress, obese Head: normocephalic Eyes: bilateral eye PERRL, bilateral eye normal inspection ENT: normal ENT inspection Neck: normal inspection Respiratory: decreased breath sounds, wheezing Cardiovascular #1: regular rate, rhythm, no edema Gastrointestinal: normal inspection Rectal: deferred Genitourinary: no CVA tenderness Musculoskeletal: normal inspection Neurologic: alert, oriented x3, responsive, motor strength/tone normal, sensory intact, speech normal Psychiatric: normal inspection Skin: normal inspection Lymphatic: normal inspection Medical Decision Making Diagnostic Impression: Primary Impression: COPD (chronic obstructive pulmonary disease) Qualified Codes: J44.9 - Chronic obstructive pulmonary disease, unspecified ER Course Hospital Course 61-year-old F presenting to ED with SOB. h/o COPD Differential diagnoses include: Pneumonia, CHF exacerbation, pneumothorax, fluid overload Clinical course Patient placed on stretcher. On service rig operator with stable vitals. After initial history and physical, I ordered nebulizer treatments. I ordered labs, IV fluids, EKG, chest x-ray, blood cultures, UA. Labs - no leukocytosis noted, hemoglobin/hematocrit stable, electrolytes okay, lactate okay, troponins negative CXR - cardiomegaly. bilateral effusions. EKG - NSR, RBBB, no acute changes interpreted by me breathing improved. O2 saturations improved. abx given Case discussed with Dr. Peter and he agreed to the patient to his service for further care and support I feel this is a highly complex case requiring extensive working including EKG/ Rhythm strip, Xray/CT/US, Blood/urine lab work, repeat exams while in ED, and administration of strong opiates/narcotics for pain control, admission to hospital or close patient follow up. Diagnosis - COPD exacerbation Patient admitted to telemetry in serious condition Labs Test 11/25/16 17:33 11/25/16 17:37 White Blood Count 8.1 K/UL (4.8-10.8) Red Blood Count 5.00 M/UL (4.20-5.40) Hemoglobin 15.0 G/DL (12.0-16.0) Hematocrit 46.1 % (37.0-47.0) Mean Corpuscular Volume 92 FL (80-99) Mean Corpuscular Hemoglobin 29.9 PG (27.0-31.0) Mean Corpuscular Hemoglobin Concent 32.5 G/DL (32.0-36.0) Red Cell Distribution Width 14.3 % (11.6-14.8) Platelet Count 154 K/UL (150-450) Mean Platelet Volume 9.0 FL (6.5-10.1) Neutrophils (%) (Auto) 62.9 % (45.0-75.0) Lymphocytes (%) (Auto) 21.4 % (20.0-45.0) Monocytes (%) (Auto) 10.0 % (1.0-10.0) Eosinophils (%) (Auto) 3.0 % (0.0-3.0) Basophils (%) (Auto) 2.7 % (0.0-2.0) Sodium Level 141 mEQ/L (135-145) Potassium Level 3.4 mEQ/L (3.4-4.9) Chloride Level 99 mEQ/L (98-107) Carbon Dioxide Level 30 mEQ/L (20-30) Anion Gap 12 (5-15) Blood Urea Nitrogen 12 mg/dL (7-23) Creatinine 0.9 mg/dL (0.5-0.9) Estimat Glomerular Filtration Rate > 60 mL/min (>60) Glucose Level 102 mg/dL (74-106) Lactic Acid Level 0.60 mmol/L (0.66-2.22) Calcium Level 9.2 mg/dL (8.6-10.2) Total Bilirubin 0.5 mg/dL (0.0-1.2) Aspartate Amino Transf (AST/SGOT) 18 U/L (5-40) Alanine Aminotransferase (ALT/SGPT) 8 U/L (3-33) Alkaline Phosphatase 54 U/L (35-104) Total Creatine Kinase 77 U/L (26-140) Creatine Kinase MB 3.9 ng/mL (< 3.8) Creatine Kinase MB Relative Index 5.0 Troponin I < 0.30 ng/mL (<=0.30) Pro-B-Type Natriuretic Peptide 994 pg/mL (0-125) Total Protein 7.3 g/dL (6.6-8.7) Albumin 4.0 g/dL (3.5-5.2) Globulin 3.3 g/dL Albumin/Globulin Ratio 1.2 (1.0-2.7) Urine Color Pale yellow Urine Appearance Clear Urine pH 6 (4.5-8.0) Urine Specific [place] 1.010 (1.005-1.035) Urine Protein Negative (NEGATIVE) Urine Glucose (UA) Negative (NEGATIVE) Urine Ketones Negative (NEGATIVE) Urine Occult Blood 1+ (NEGATIVE) Urine Nitrite Negative (NEGATIVE) Urine Bilirubin Negative (NEGATIVE) Urine Urobilinogen Normal MG/DL (0.0-1.0) Urine Leukocyte Esterase 2+ (NEGATIVE) Urine RBC 0-2 /HPF (0 - 2) Urine WBC 2-4 /HPF (0 - 2) Urine Squamous Epithelial Cells Few /LPF (NONE/OCC) Urine Amorphous Sediment Few /LPF (NONE) Urine Bacteria Few /HPF (NONE) EKG Diagnostic Results Rate: normal Rhythm: NSR ST Segments: no acute changes ASA given to the pt in ED: No Rhythm Strip Diag. Results EP Interpretation: yes Rhythm: NSR, no PVC's, no ectopy Chest X-Ray Diagnostic Results Chest X-Ray Ordered: Yes # of Views/Limited/Complete: 1 View EP Interpretation: Yes Interpretation: no consolidation, no pneumothorax, other - cardiomegaly. bilateral effusion Indication: Shortness of Breath Impression: Other - cardiomegaly. bilateral effusions Interpreting ER Provider: Blake Johns MD Last Vital Signs Date Time Temp Pulse Resp B/P Pulse Ox O2 Delivery O2 Flow Rate FiO2 11/25/16 17:14 90 16 94 Nasal Cannula 2.0 11/25/16 16:39 98.2 168/88 Status: improved Disposition: ADMITTED INPATIENT Condition: Serious Referrals: NON PHYSICIAN (PCP) BLAKE JOHNS M.D. Nov 25, 2016 19:10
[2016-11-25] MEDS ORDERED: IBUPROFEN200 MG ORAL (19:25)
[2016-11-25] MEDS ORDERED: RISPERDAL1 MG PO (19:57)
[2016-11-25 20:00] VITALS: BP_SYST 104; BP_SYST 165; BP_DIAS 53; BP_DIAS 74
[2016-11-25] MEDS: Theophylline ER 100mg ORAL SCH (21:25)
[2016-11-25] MEDS: Piperacillin/Tazobactam 3.375 GM in D5W 55 ML IVPB SCH (21:26)
[2016-11-25] MEDS: Heparin 5000 units/ml inj SUBQ SCH (21:27)
[2016-11-25] MEDS: Morphine Sulfate 2mg/ml Inj IVP PRN (23:21)
[2016-11-25] MEDS: Solu-MEDROL 125mg Inj IV SCH (23:36)
[2016-11-26] VITALS (8 sets, daily range): BP systolic 146–167; BP diastolic 73–98
[2016-11-26] MEDS: Piperacillin/Tazobactam 3.375 GM in D5W 55 ML IVPB SCH (05:26)
[2016-11-26] MEDS: Solu-MEDROL 125mg Inj IV SCH ×3 (05:28→17:52)
[2016-11-26] MEDS: Theophylline ER 100mg ORAL SCH ×2 (08:43→20:54)
[2016-11-26] MEDS: Lisinopril 20mg tab ORAL SCH (08:43)
[2016-11-26] MEDS: Heparin 5000 units/ml inj SUBQ SCH ×2 (08:45→20:59)
[2016-11-26] MEDS: Morphine Sulfate 2mg/ml Inj IVP PRN (08:57)
--- NOTE | 2016-11-26 10:37 | Diagnostic Imaging Report ---
Indication: SOB Technique: One view of the chest Comparison: 10/01/2016 Findings: Body habitus somewhat limits evaluation. The heart is borderline enlarged. Lungs and pleural spaces are probably clear. No significant interim change Impression: No definite acute process
--- NOTE | 2016-11-26 12:49 | History and Physical ---
History of Present Illness General Date patient seen: Nov 26, 2016 Reason for Hospitalization: Upper Respiratory Illness Present Illness HPI 61-year-old female presents ED complaining of shortness of breath. States that she went to her doctor's office today to get a breathing treatment. Has history of COPD. Patient left the office was feeling short of breath. Call 911. Patient is normally on home oxygen but does not have portable oxygen. Patient notes cough with productive phlegm. Notes shortness of breath when walking. Denies any chest pain. Denies any fevers or chills. States she was recently admitted and discharged from another hospital or treatment of her COPD. No other aggravating or relieving factors. Denies any other associated symptoms Allergies: Coded Allergies: SULFA (SULFONAMIDE ANTIBIOTICS) (Verified Allergy, Unknown, 10/01/16) Medication History Scheduled Albuterol Sulfate* (Albuterol Sulfate Mdi*), 2 PUFF INH Q4H, (Reported) Amlodipine Besylate (Norvasc), 5 MG ORAL DAILY, (Reported) Emtricitab/Rilpiviri/Tenof Ala (Odefsey Tablet), 1 EACH PO DAILY, (Reported) Gabapentin* (Gabapentin*), 800 MG ORAL TID, (Reported) Ibuprofen (Ibuprofen*), 800 MG ORAL TID, (Reported) Lisinopril (Lisinopril*), 0 ORAL DAILY, (Reported) Methylprednisolone* (Medrol*), 4 MG ORAL DAILY Multivitamins* (Multivitamins*), 1 TAB ORAL DAILY, (Reported) Risperidone* (Risperdal*), 3 MG PO BID, (Reported) Vitamin B Complex (Vitamin B Complex), 1 EACH PO DAILY, (Reported) Scheduled PRN Tramadol Hcl* (Ultram*), 50 MG ORAL TID PRN for For Pain, (Reported) Discontinued Medications Ibuprofen* (Motrin*), 800 MG ORAL THREE TIMES A DAY, (Reported) Discontinued Reason: Prescription changed Levofloxacin* (Levaquin*), 750 MG ORAL DAILY Discontinued Reason: MD discontinued med [HIV medication], (Reported) Discontinued Reason: Therapy completed [Risperidone ], 3 MG PO BID, (Reported) Discontinued Reason: Prescription changed Patient History Healthcare decision maker Resuscitation status Full Code Advanced Directive on File Past Medical/Surgical History Past Medical/Surgical History: (1) COPD (chronic obstructive pulmonary disease) Review of Systems All Other Systems: negative except mentioned in HPI Physical Exam Lines, tubes and drains: peripheral HEENT: normocephalic Neck: non-tender, normal alignment Respiratory/Chest: chest wall non-tender, lungs clear Cardiovascular/Chest: normal peripheral pulses, regular rhythm Abdomen: normal bowel sounds, non tender Genitourinary/Rectal: normal genital exam Last 24 Hour Vital Signs Date Time Temp Pulse Resp B/P Pulse Ox O2 Delivery O2 Flow Rate FiO2 11/26/16 11:19 97.9 96 18 148/86 92 Nasal Cannula 2.0 11/26/16 08:43 156/73 11/26/16 08:43 100 156/73 11/26/16 08:00 95 11/26/16 07:40 97.3 100 18 156/73 92 Nasal Cannula 2.0 92 11/26/16 07:39 90 153/79 11/26/16 07:03 90 16 Nasal Cannula 2.0 28 11/26/16 04:00 97.7 85 18 162/94 90 Nasal Cannula 2.0 11/26/16 03:54 86 11/26/16 00:00 97.5 97 18 167/98 96 Nasal Cannula 2.0 11/25/16 23:26 97 11/25/16 20:31 83 11/25/16 20:00 98.1 63 20 104/53 94 Nasal Cannula 2.0 11/25/16 20:00 97.3 84 18 165/74 96 Nasal Cannula 2.0 11/25/16 19:21 86 20 94 Nasal Cannula 11/25/16 19:20 82 20 94 Nasal Cannula 2.0 11/25/16 19:17 82 23 106/72 90 Nasal Cannula 3.0 11/25/16 18:31 82 23 106/72 90 Nasal Cannula 3.0 11/25/16 17:14 90 16 94 Nasal Cannula 2.0 11/25/16 16:49 90 16 Nasal Cannula 2.0 11/25/16 16:39 98.2 90 16 168/88 94 Room Air Intake and Output 11/25/16 11/26/16 18:59 06:59 Intake Total 720 ml Balance 720 ml IV Total 720 ml # Voids 2 Laboratory Tests Test 11/25/16 17:33 11/25/16 17:37 White Blood Count 8.1 K/UL (4.8-10.8) Red Blood Count 5.00 M/UL (4.20-5.40) Hemoglobin 15.0 G/DL (12.0-16.0) Hematocrit 46.1 % (37.0-47.0) Mean Corpuscular Volume 92 FL (80-99) Mean Corpuscular Hemoglobin 29.9 PG (27.0-31.0) Mean Corpuscular Hemoglobin Concent 32.5 G/DL (32.0-36.0) Red Cell Distribution Width 14.3 % (11.6-14.8) Platelet Count 154 K/UL (150-450) Mean Platelet Volume 9.0 FL (6.5-10.1) Neutrophils (%) (Auto) 62.9 % (45.0-75.0) Lymphocytes (%) (Auto) 21.4 % (20.0-45.0) Monocytes (%) (Auto) 10.0 % (1.0-10.0) Eosinophils (%) (Auto) 3.0 % (0.0-3.0) Basophils (%) (Auto) 2.7 % (0.0-2.0) H Sodium Level 141 mEQ/L (135-145) Potassium Level 3.4 mEQ/L (3.4-4.9) Chloride Level 99 mEQ/L (98-107) Carbon Dioxide Level 30 mEQ/L (20-30) Anion Gap 12 (5-15) Blood Urea Nitrogen 12 mg/dL (7-23) Creatinine 0.9 mg/dL (0.5-0.9) Estimat Glomerular Filtration Rate > 60 mL/min (>60) Glucose Level 102 mg/dL (74-106) Lactic Acid Level 0.60 mmol/L (0.66-2.22) L Calcium Level 9.2 mg/dL (8.6-10.2) Total Bilirubin 0.5 mg/dL (0.0-1.2) Aspartate Amino Transf (AST/SGOT) 18 U/L (5-40) Alanine Aminotransferase (ALT/SGPT) 8 U/L (3-33) Alkaline Phosphatase 54 U/L (35-104) Total Creatine Kinase 77 U/L (26-140) Creatine Kinase MB 3.9 ng/mL (< 3.8) H Creatine Kinase MB Relative Index 5.0 Troponin I < 0.30 ng/mL (<=0.30) Pro-B-Type Natriuretic Peptide 994 pg/mL (0-125) H Total Protein 7.3 g/dL (6.6-8.7) Albumin 4.0 g/dL (3.5-5.2) Globulin 3.3 g/dL Albumin/Globulin Ratio 1.2 (1.0-2.7) Urine Color Pale yellow Urine Appearance Clear Urine pH 6 (4.5-8.0) Urine Specific [place] 1.010 (1.005-1.035) Urine Protein Negative (NEGATIVE) Urine Glucose (UA) Negative (NEGATIVE) Urine Ketones Negative (NEGATIVE) Urine Occult Blood 1+ (NEGATIVE) H Urine Nitrite Negative (NEGATIVE) Urine Bilirubin Negative (NEGATIVE) Urine Urobilinogen Normal MG/DL (0.0-1.0) Urine Leukocyte Esterase 2+ (NEGATIVE) H Urine RBC 0-2 /HPF (0 - 2) Urine WBC 2-4 /HPF (0 - 2) Urine Squamous Epithelial Cells Few /LPF (NONE/OCC) Urine Amorphous Sediment Few /LPF (NONE) H Urine Bacteria Few /HPF (NONE) Height (Feet): 5 Height (Inches): 6.00 Weight (Pounds): 265 Medications Current Medications Medications (Trade) Dose Ordered Sig/Ary Route PRN Reason Start Time Stop Time Status Last Admin Dose Admin Albuterol/ Ipratropium (DuoNeb 0.5-3(2.5)mg/3ml) 3 ml Q4H PRN HHN dyspnea 11/25/16 18:45 11/30/16 18:44 Amlodipine Besylate (Norvasc) 5 mg DAILY ORAL 11/26/16 09:00 12/26/16 08:59 11/26/16 08:43 Dextrose STAT PRN IV Hypoglycemia 11/25/16 18:45 12/25/16 18:44 Gabapentin (Neurontin) 400 mg BID ORAL 11/26/16 12:00 12/26/16 11:59 11/26/16 11:09 Heparin Sodium (Porcine) (Heparin 5000 units/ml) 5,000 units EVERY 12 HOURS SUBQ 11/25/16 21:00 12/25/16 20:59 11/26/16 08:45 Ketorolac Tromethamine (Toradol 30mg) 30 mg Q8H PRN IV moderate pain 4-6 11/25/16 18:45 11/30/16 18:44 Lisinopril (Prinivil) 20 mg DAILY ORAL 11/26/16 09:00 12/26/16 08:59 11/26/16 08:43 Lorazepam (Ativan 2mg/ml 1ml) 0.5 mg Q4H PRN IV For Anxiety 11/25/16 18:45 12/02/16 18:44 Methylprednisolone Sodium Succinate (Solu-MEDROL) 60 mg EVERY 6 HOURS IV 11/26/16 00:00 12/26/16 00:00 11/26/16 08:44 Morphine Sulfate (Morphine Sulfate) 2 mg Q4H PRN IVP severe pain 7-10 11/25/16 18:45 12/02/16 18:44 11/26/16 08:57 Nitroglycerin (Ntg) 0.4 mg Q5M X 3 DOSES PRN SL Prn Chest Pain 11/25/16 18:45 12/25/16 18:44 Ondansetron HCl (Zofran) 4 mg Q6H PRN IVP Nausea & Vomiting 11/25/16 18:45 12/25/16 18:44 Piperacillin Sod/ Tazobactam Sod/ Dextrose (Zosyn/D5W) 110 ml @ 27.5 mls/hr EVERY 8 HOURS IVPB 11/26/16 14:00 12/03/16 13:59 Promethazine HCl/ Codeine (Phenergan with Codeine) 5 ml Q6H PRN ORAL cough 11/25/16 18:45 12/25/16 18:44 Temazepam (Restoril) 15 mg HSPRN PRN ORAL Insomnia 11/25/16 21:00 12/02/16 20:59 Theophylline (Gustavo-Dur) 100 mg EVERY 12 HOURS ORAL 11/25/16 21:00 12/25/16 20:59 11/26/16 08:43 Assessment/Plan Problem List: (1) Asthma with acute exacerbation ICD Codes: J45.901 - Unspecified asthma with (acute) exacerbation SNOMED: 500532151 (2) COPD (chronic obstructive pulmonary disease) ICD Codes: J44.9 - Chronic obstructive pulmonary disease, unspecified SNOMED: 69827886 Qualifiers: Qualified Codes: J44.9 - Chronic obstructive pulmonary disease, unspecified (3) HIV disease ICD Codes: B20 - Human immunodeficiency virus [HIV] disease SNOMED: 57913962 Assessment/Plan pt improved since admission last night, she has to go home to pay her rent tomorrow will dc her with oral abx and steroids her cxr was negative for any acute infiltrate. DEREK MARTIN Nov 26, 2016 12:49
[2016-11-26] MEDS: Piperacillin/Tazobactam 3.375 GM in D5W 110 ML IVPB SCH ×2 (14:12→20:58)
[2016-11-26] MEDS: DuoNeb 0.5-3(2.5)mg/3ml neb HHN PRN (14:24)
[2016-11-27] MEDS: Solu-MEDROL 125mg Inj IV SCH ×3 (00:17→08:29)
[2016-11-27 04:00] VITALS: BP 135/70
[2016-11-27] MEDS: Piperacillin/Tazobactam 3.375 GM in D5W 110 ML IVPB SCH ×2 (07:12→13:33)
[2016-11-27 07:46] VITALS: BP 143/87
[2016-11-27] MEDS: Lisinopril 20mg tab ORAL SCH (08:29)
[2016-11-27] MEDS: Theophylline ER 100mg ORAL SCH (08:29)
[2016-11-27] MEDS: Heparin 5000 units/ml inj SUBQ SCH (08:32)
[2016-11-27] MEDS: DuoNeb 0.5-3(2.5)mg/3ml neb HHN PRN ×2 (09:47→16:31)
[2016-11-27 11:28] VITALS: BP 135/76
--- NOTE | 2016-11-27 15:06 | Pulmonology Progress Note ---
Assessment/Plan Problems: (1) Asthma with acute exacerbation (2) COPD (chronic obstructive pulmonary disease) (3) HIV disease Assessment/Plan improving respiratory treatment dc home with oral abx and steroids Subjective ROS Limited/Unobtainable: No Constitutional: Reports: no symptoms HEENT: Repors: no symptoms Respiratory: Reports: no symptoms Cardiovascular: Reports: no symptoms Allergies: Coded Allergies: SULFA (SULFONAMIDE ANTIBIOTICS) (Verified Allergy, Unknown, 10/01/16) Objective Last 24 Hour Vital Signs Date Time Temp Pulse Resp B/P Pulse Ox O2 Delivery O2 Flow Rate FiO2 11/27/16 11:28 97.9 88 18 135/76 94 Nasal Cannula 2.0 11/27/16 09:57 95 20 96 Nasal Cannula 2.0 11/27/16 09:47 94 20 94 Nasal Cannula 2.0 11/27/16 08:29 143/87 11/27/16 08:29 93 143/87 11/27/16 08:00 99 11/27/16 07:46 98.1 93 18 143/87 97 Nasal Cannula 2.0 11/27/16 07:02 96 18 Nasal Cannula 2.0 11/27/16 07:02 93 Nasal Cannula 2.0 11/27/16 07:02 Nasal Cannula 2.0 11/27/16 04:00 76 11/27/16 04:00 97.2 82 19 135/70 96 11/27/16 00:00 77 11/26/16 23:52 98.7 79 18 146/79 96 Nasal Cannula 2.0 11/26/16 20:00 86 11/26/16 19:53 98.8 88 19 148/81 94 Nasal Cannula 2.0 11/26/16 19:42 Nasal Cannula 2.0 11/26/16 19:42 95 Nasal Cannula 2.0 11/26/16 19:40 95 18 Nasal Cannula 2.0 11/26/16 16:00 95 11/26/16 15:28 98.1 94 18 154/89 94 Nasal Cannula 2.0 Intake and Output 11/26/16 11/27/16 19:00 07:00 Intake Total 830.0 ml 315.5 ml Balance 830.0 ml 315.5 ml Intake Oral 720 ml 200 ml IV Total 110.0 ml 115.5 ml # Voids 3 # Bowel Movements 1 General Appearance: WD/WN HEENT: normocephalic, atraumatic Respiratory/Chest: chest wall non-tender, lungs clear Cardiovascular: normal peripheral pulses, normal rate Abdomen: normal bowel sounds, soft, non tender Genitourinary: normal external genitalia Skin: no lesions Neurologic/Psychiatric: senior instructor II-XII grossly normal, no motor/sensory deficits Microbiology Date/Time Source Procedure Growth Status 11/25/16 17:33 Blood Blood Culture - Preliminary NO GROWTH AFTER 24 HOURS Resulted 11/25/16 17:23 Blood Blood Culture - Preliminary NO GROWTH AFTER 24 HOURS Resulted 11/25/16 19:50 Nasal Nares MRSA Culture - Final Staphylococcus Aureus - Mrsa Complete 11/25/16 19:50 Rectum VRE Culture - Final NO VANCOMYCIN RESISTANT ENTEROCOCCUS ... Complete Current Medications Medications (Trade) Dose Ordered Sig/Ary Route PRN Reason Start Time Stop Time Status Last Admin Dose Admin Albuterol/ Ipratropium (DuoNeb 0.5-3(2.5)mg/3ml) 3 ml Q4H PRN HHN dyspnea 11/25/16 18:45 11/30/16 18:44 11/27/16 09:47 Amlodipine Besylate (Norvasc) 5 mg DAILY ORAL 11/26/16 09:00 12/26/16 08:59 11/27/16 08:29 Dextrose STAT PRN IV Hypoglycemia 11/25/16 18:45 12/25/16 18:44 Gabapentin (Neurontin) 400 mg BID ORAL 11/26/16 12:00 12/26/16 11:59 11/27/16 08:39 Heparin Sodium (Porcine) (Heparin 5000 units/ml) 5,000 units EVERY 12 HOURS SUBQ 11/25/16 21:00 12/25/16 20:59 11/27/16 08:32 Ketorolac Tromethamine (Toradol 30mg) 30 mg Q8H PRN IV moderate pain 4-6 11/25/16 18:45 11/30/16 18:44 Lisinopril (Prinivil) 20 mg DAILY ORAL 11/26/16 09:00 12/26/16 08:59 11/27/16 08:29 Lorazepam (Ativan 2mg/ml 1ml) 0.5 mg Q4H PRN IV For Anxiety 11/25/16 18:45 12/02/16 18:44 Methylprednisolone Sodium Succinate (Solu-MEDROL) 60 mg EVERY 6 HOURS IV 11/26/16 00:00 12/26/16 00:00 11/27/16 08:29 Morphine Sulfate (Morphine Sulfate) 2 mg Q4H PRN IVP severe pain 7-10 11/25/16 18:45 12/02/16 18:44 11/26/16 08:57 Nitroglycerin (Ntg) 0.4 mg Q5M X 3 DOSES PRN SL Prn Chest Pain 11/25/16 18:45 12/25/16 18:44 Ondansetron HCl (Zofran) 4 mg Q6H PRN IVP Nausea & Vomiting 11/25/16 18:45 12/25/16 18:44 Piperacillin Sod/ Tazobactam Sod/ Dextrose (Zosyn/D5W) 110 ml @ 27.5 mls/hr EVERY 8 HOURS IVPB 11/26/16 14:00 12/03/16 13:59 11/27/16 13:33 Promethazine HCl/ Codeine (Phenergan with Codeine) 5 ml Q6H PRN ORAL cough 11/25/16 18:45 12/25/16 18:44 Temazepam (Restoril) 15 mg HSPRN PRN ORAL Insomnia 11/25/16 21:00 12/02/16 20:59 Theophylline (Gustavo-Dur) 100 mg EVERY 12 HOURS ORAL 11/25/16 21:00 12/25/16 20:59 11/27/16 08:29 DEREK MARTIN Nov 27, 2016 15:06
[2016-11-27 15:15] VITALS: BP 159/86
[2016-11-27] MEDS ORDERED: NS 275ml ONE (17:59)
[2016-11-27] MEDS ORDERED: Tubing IV Secondary IV ONE (17:59)
--- NOTE | 2016-11-28 09:10 | Discharge Summary ---
Discharge Summary Hospital Course Date of Admission Nov 25, 2016 at 18:11 Date of Discharge Nov 27, 2016 at 18:00 Admitting Diagnosis COPD HPI Nona Joseph is a 61 year old female who was admitted on Nov 25, 2016 at 18:11 for Chronic Obstructive Pulmonary Disorder Hospital Course [id number] Discharge Discharge Disposition Patient was discharged to Home (01) Discharge Diagnoses: Caitlin Grimes NP Nov 28, 2016 09:10
--- NOTE | 2016-11-28 13:15 | Discharge Summary 2 SIG ---
DATE OF ADMISSION: 11/25/2016 DATE OF DISCHARGE: 11/27/2016 BRIEF HOSPITAL COURSE: The patient is a 61-year-old female, who presented to ED complaining of shortness of breath. She has a history of COPD and presented to the doctor's office and was given breathing treatment. Left the office and apparently continued to be short of breath. She is normally on home oxygen and has been complaining of cough with productive phlegm. On evaluation at ED, chest x-ray showed cardiomegaly with bilateral effusions. EKG was in normal sinus rhythm with right bundle-branch block with no acute changes. She was given nebulizer treatments and was admitted to telemetry for acute COPD exacerbation. She was given bronchodilators and was started on IV antibiotic Zosyn. Blood culture did not isolate any growth. Sputum culture still pending. She had improvement in symptoms and was discharged home. Advised to follow up with PMD. FINAL DIAGNOSES: 1. Acute chronic obstructive pulmonary disease exacerbation. 2. Acute asthma exacerbation. 3. Human immunodeficiency virus disease. Carter Peter M.D. I have been assigned to dictate discharge summary on this account and I was not involved in the patient's management. Caitlin Grimes N.P. DR: JOSÉ MANUEL JOB#: [id number] CC:
--- NOTE | 2016-11-30 09:19 | Cardiology Report ---
APPROVED REPORT EKG Measurement Heart [id number] Normal sinus rhythm Left axis deviation Incomplete right bundle branch block Cannot rule out Anterior infarct, age undetermined Abnormal ECG
== END 2016-11-27 18:00 | disposition home or self-care (01) | DRG 141 ==
LOC: EDBD 16:48 → EMR 17:10 → 2E 18:11 → EDBEDREQ 18:32
DX: J45.901 Unspecified asthma with (acute) exacerbation (principal); J44.1 Chronic obstructive pulmonary disease with (acute) exacerbation; Z99.81 Dependence on supplemental oxygen; I10 Essential (primary) hypertension; I45.10 Unspecified right bundle-branch block; Z88.2 Allergy status to sulfonamides
CPT/HCPCS: 36415; 71010; 80053; 81003; 82550; 82553; 83605; 83880; 84484; 85025; 87040; 87070; 87081; 87205; 93005; 94640; 94664; 94760; J7620